=== PATIENT | female | born 1995 ===

== ENCOUNTER 2017-05-10 19:52 | Emergency (ER) | payer SELFPAY ==
--- NOTE | ~2017-05-10 | ER ---
PATIENT'S NAME: KAVITA BRIGHT [facility] AGE: 21 Y [address] ROOM: [place] [address] LOCATION: ED ADMIT DATE: 05/10/2017 ER/Outpatient Report DISCHARGE DATE: 05/10/2017 FAMILY PHYSICIAN: PHYSICIAN, NO ATTENDING PHYSICIAN: Cesar Bal Admission date and time documented on the medical record. I saw the patient at 2000 hours. CHIEF COMPLAINT: Syncopal episode, unresponsive episode. HISTORY OF PRESENT ILLNESS: The patient is a 21-year-old female, who works at [employer]. She became lightheaded and ill around 1730 hours late this afternoon. She was next found about 1900 hours unresponsive in the bathroom. The patient was brought to the emergency room by paramedics via ambulance for evaluation. On arrival, the patient was awake, responsive, was feeling normal. She states that she got lightheaded and dizzy, got nauseated, vomited once that the last thing she remembers till the paramedics were getting her in the ambulance. On arrival here to the emergency room, the patient was awake and responsive. She had no headache, eyes, ears, nose, throat pain. No neck pain, spine pain, chest pain, abdominal pain, extremity pain. She is not lightheaded or dizzy at this time. No vertigo. No fall or trauma. Just collapsed in the bathroom. No injuries. No recent coughs, colds, flus, fever, chills, or sweats. No shortness of breath. She did have nausea, vomiting, but no diarrhea, no incontinence. No joint or muscle swelling, redness, or pain. No skin eruptions or rash. No history of neuro changes, psych issues, endocrine problems. HOME MEDICATIONS: None. ALLERGIES: NONE. SOCIAL HISTORY: Nonsmoker, nondrinker. SIGNIFICANT PAST MEDICAL HISTORY: Negative. OPERATIONS: None. PATIENT'S NAME: KAVITA BRIGHT [facility] AGE: 21 Y [address] ROOM: [place] [address] LOCATION: [facility] ADMIT DATE: 05/10/2017 ER/Outpatient Report DISCHARGE DATE: 05/10/2017 FAMILY PHYSICIAN: PHYSICIAN, NO ATTENDING PHYSICIAN: Cesar Bal REVIEW OF SYSTEMS: All systems reviewed by me are negative with the exception of those discussed in the history of present illness. PHYSICAL EXAMINATION: VITAL SIGNS: Temperature 96.4, pulse 78, blood pressure 99/66, O2 saturation on room air is 100%. HEAD: Normocephalic. No abrasion, contusion, laceration, swelling of the scalp or face. EYES: Extraocular muscles intact. PERRL. EARS: Clear TMs bilaterally. NOSE: Clear. THROAT: Clear. Mucous membranes moist. NECK: No nuchal rigidity. No thyromegaly or cervical adenopathy. SPINE: Negative, nontender, no deformity. LUNGS: Clear, good air flow. No rales, rhonchi, or wheezes. HEART: Regular. Pulses are palpable. No chest wall or ribcage pain to palpation. ABDOMEN: Flat, soft, nondistended, nontender. Active bowel tones. No organomegaly or abnormal mass palpable. No CVA tenderness. EXTREMITIES: No peripheral edema, cyanosis, or deformity. NEURO: Cranial nerves intact. No lateralizing sign. The patient is awake, cooperative. Motor and sensory intact. SKIN: Clear. No skin eruptions or rash. LABORATORY DATA AND X-RAYS: Procalcitonin was less than 0.05. Urine showed 0-2 whites, negative reds, 5- 10 epithelial cells, rare bacteria, 1+ mucus per high-powered field, negative nitrites on dipstick. D-dimer was normal at less than 0.19. TSH was normal. CMS was normal except for a low blood sugar 60. Medical blood alcohol was less than 0.01. Acetone was normal at 1.0. CPK was normal at 106. Point-of- care cardiac enzymes were normal. Acetaminophen and salicylate levels were normal. CRP was normal less than 0.29. Magnesium normal 2.4. White count was 9500, 86 segs, 7 lymphs, 5 monos, 1 eo, 1 baso. Hemoglobin was 12.9 with hematocrit 40.1, platelet count was 200,000. Pro-time was 12 with an INR 1.14. Venous pH was 7.32. Urine drug screen was positive for amphetamines. EMERGENCY DEPARTMENT COURSE: The patient was given IV normal saline fluids, IV Zofran for nausea. IMPRESSION: Syncopal unresponsive episode with lightheadedness, dizziness, nausea, vomiting. Etiology uncertain. However, her blood sugar was low here in the emergency department 60. She may have had a hypoglycemic episode that led to this syncopal episode and unresponsiveness. It should be noted also that she PATIENT'S NAME: KAVITA BRIGHT [facility] AGE: 21 Y [address] ROOM: [place] [address] LOCATION: [facility] ADMIT DATE: 05/10/2017 ER/Outpatient Report DISCHARGE DATE: 05/10/2017 FAMILY PHYSICIAN: PHYSICIAN, NO ATTENDING PHYSICIAN: Cesar Bal was positive for amphetamines on her urine drug screen. The patient did admit that she had not eaten much all day. PLAN: The patient was feeling good. I hydrated her. I gave her 2 cups of orange juice orally. Dismissed home. Observation. Activity as tolerated. Good hydration, fluid intake. Balanced diet spread throughout the day. Follow up with personal physician as needed. Discussion ensued with the patient concerning my findings and recommendations, she understands. MD SCOTT CRONIN/charitol /[id number] d: 05/11/17 0126 t: 05/11/17 1820, OUTPATIENT REPORT
[2017-05-10 20:18] LABS: BICARBONATE 26.3 mmol/L (18.0-23.0); PCO2 51 mmHg (35-45)
[2017-05-10 20:19] LABS: PO2 22 mmHg (80-90)
[2017-05-10 20:20] LABS: BASOPHIL # 0.1 K/uL (0.0-0.2); BASOPHIL % 0.6 %; EOSINOPHIL # 0.1 K/uL (0.0-0.5); EOSINOPHIL % 0.9 %; HEMATOCRIT 40.1 % (33.0-46.0); HEMOGLOBIN 12.9 g/dL (11.0-15.0); IMMATURE GRANULOCYTE % 0.3 %; LYMPHOCYTE # 0.7 K/uL (0.8-4.0); LYMPHOCYTE % 7.2 %; MCH 29.7 pg (27.0-34.0); MCHC 32.2 gm/dL (32.0-36.5); MCV 92.4 fl (83.0-98.0); MONOCYTE # 0.5 K/uL (0.0-1.0); MONOCYTE % 5.4 %; NEUTROPHIL # (ANC) 8.1 K/uL (1.8-7.8); NEUTROPHIL % 85.6 %; NRBC % 0 /100WBC (0-0.00); PLATELET COUNT 200 K/uL (150-450); RBC 4.34 M/uL (3.50-5.00); RDW-CV 12.8 % (11.9-14.6); WBC 9.5 K/uL (4.0-11.0)
[2017-05-10 20:40] LABS: INR - (THERAPEUTIC) 1.14 (0.92-1.07)
[2017-05-10 20:44] LABS: ALBUMIN 4.4 gm/dL (3.5-5.0); ALK PHOS 68 IU/L (33-138); ALT 24 IU/L (12-78); AST 17 IU/L (10-40); BLOOD UREA NITROGEN 11 mg/dL (6-24); CALCIUM 8.7 mg/dL (8.5-10.5); CHLORIDE 108 mMol/L (96-110); CO2 25 mMol/L (22-32); CPK 106 IU/L (21-215); CREATININE 0.8 mg/dL (0.5-1.1); SODIUM 139 mMol/L (135-145); TOTAL BILIRUBIN 0.6 mg/dL (0.0-1.5); TOTAL PROTEIN 7.6 g/dL (6.0-8.4)
[2017-05-10 21:00] LABS: BILIRUBIN URINE NEGATIVE (NEGATIVE); BLOOD URINE 150 /UL (NEGATIVE); COLOR URINE YELLOW (YELLOW); GLUCOSE URINE 100 mg/dL (NEGATIVE); KETONE URINE 5 mg/dL (NEGATIVE); LEUKOCYTES URINE NEGATIVE /UL (NEGATIVE); NITRITE URINE NEGATIVE (NEGATIVE); PROTEIN URINE 15 mg/dL (NEGATIVE); SPEC GRAVITY URINE 1.015 (1.003-1.035); TURBIDITY URINE CLEAR (CLEAR); UROBILINOGEN URINE NORMAL (NORMAL)
[2017-05-10 21:08] LABS: RBC URINE NEGATIVE #/HPF (NEGATIVE); WBC URINE 0-2 #/HPF (NEGATIVE)
[2017-05-10 21:09] LABS: BACTERIA URINE RARE (NEGATIVE); MUCUS URINE 1+ (NEGATIVE)
[2017-05-10 21:17] LABS: BARBITURATE NEGATIVE (NEGATIVE); COCAINE NEGATIVE (NEGATIVE); OPIATES NEGATIVE (NEGATIVE)
[2017-05-10 21:18] LABS: AMPHETAMINE POSITIVE (NEGATIVE)
== END 2017-05-10 21:23 | disposition disaster alternative care site (69) ==
LOC: GMED 19:52
PROVIDERS: Emergency Medicine
DX: R55 Syncope and collapse (principal); R42 Dizziness and giddiness; R11.2 Nausea with vomiting, unspecified
CPT/HCPCS: G0480; J2405; J7030